=== PATIENT | female | born 1950 | race Caucasian/White ===

== ENCOUNTER 2017-01-16 13:07 | Day surgery (SDC) | payer MEDICARE, BC, OTHER ==
[~2017-01-16] VITALS: Ht 163.8 cm; Wt 74.1 kg
[~2017-01-16 13:07] MED LIST: ABILIFY10 MG PO; HYDROCHLOROTHIAZIDE PO; IPRAT-ALBUT 0.5-3 ML UPD; KLONOPIN0.5 MG PO; LASIX20 MG PO; LEVAQUIN750 MG PO; LOPRESSOR50 MG PO; MELATONIN 10 M1 EACH PO; PLAVIX75 MG PO; PROAIR HFA8.5 GM INH; PROVENTIL HFA6.7 GM INH; PROZAC40 MG PO; PULMICORT0.5 MG/21 INH; SPIRIVA18 MCG INH; STERAPRED 5MG 125 MG PO; SYMBICORT 16010.2 GM INH; VALIUM5 MG PO; VYTORIN 10-20 M1 TAB PO; ZESTRIL10 MG PO
[2017-01-16 15:32] LABS: HEMATOCRIT 40.4 % (36.0-48.0); HEMOGLOBIN 13.1 g/dL (12-16); MCHC 32.4 g/dL (31.0-37.0); MCV 92.7 fL (80.0-100.0); MEAN PLATELET VOLUME 9.4 fL (7.4-10.4); RBC 4.36 10x6/uL (4.00-5.40); RDW 13.9 % (11.5-14.5); WBC 10.3 10x3/uL (4.8-10.8)
[2017-01-16] MEDS ORDERED: VALIUM 2 MG TAB2 MG PO (15:43)
[2017-01-16 15:47] VITALS: BP 138/74; Ht 163.8 cm; Wt 74.1 kg
--- NOTE | 2017-01-22 10:15 | OP ---
PATIENT NAME: GANGA BARKER MEDICAL RECORD: [id number] :46 LOCATION:[facility] ADMISSION DATE: SURGEON: PRO BEARDEN DO DATE OF OPERATION: 01/16/2017 PROCEDURE: Esophagogastroduodenoscopy. SCOPE: Olympus video gastroscope. MEDICATIONS: Propofol 120 mg IV per anesthesia. INDICATIONS FOR PROCEDURE: Generalized abdominal pain, heartburn, gas and bloating, melena, nausea, and occult blood in stools. FINDINGS: Informed consent was given. The patient was made comfortable with the above medications. After reaching an adequate level of sedation by slow IV push, the patient was placed on her left side. The endoscope was then advanced under direct visualization through the mouth to the second portion of the duodenum. The upper, middle and distal thirds of the esophagus appeared normal. At the GE junction, there was evidence of moderate reflux induced esophagitis/LA class A. There was an esophageal ulceration present at the GE junction. The scope was advanced into the stomach and retroflexed to view the cardia, where a small sliding hiatal hernia was present. The scope was advanced into the body of the stomach as well as the antrum and prepyloric region. There was some patchy erythema and granularity consistent with gastritis. This was present in the fundus, body and antrum. Random biopsies were taken of the antrum, incisura, body and fundus of the stomach. These were sent for histology and to rule out H. pylori. The scope was advanced into the duodenum where the bulb and second portion appeared normal. Scope was then withdrawn from the patient. The patient tolerated the procedure well and there were no complications. ESTIMATED BLOOD LOSS: Less than 5 cc. IMPRESSION: 1. Reflux esophagitis grade A. 2. Esophageal ulcerations. 3. Gastritis. 4. Sliding hiatal hernia. PLAN AND RECOMMENDATIONS: 1. Discharge home when recovery parameters are met. 2. Continue current diet. 3. Reflux precautions. 4. Trial of omeprazole 40 mg daily for 8 weeks. 5. The patient is scheduled to return for a colonoscopy. I will discuss her symptoms at that time and if she is not better, we will provide further workup regarding her symptoms. Of note, based on some of her symptoms, we did discuss performing a gastric emptying study and I will schedule this at this time. TRANSINT:[id number] Voice Confirmation ID: [id number] DOCUMENT ID: [id number] OPERATIVE REPORT [id number] GANGA BARKER,PRO Viramontes DO at 1015 CC: [id number] DICTATION DATE: 01/16/171820 TRANSIT COACH OPERATOR: 01/17/17 0025 [facility] 01/16/17 [facility] [address] [id number]
== END 2017-01-16 19:28 | disposition home or self-care (01) ==
LOC: D.OPS 13:07
PROVIDERS: Anesthesiology
DX: K21.0 Gastro-esophageal reflux disease with esophagitis (principal); K44.9 Diaphragmatic hernia without obstruction or gangrene; K22.10 Ulcer of esophagus without bleeding; K29.50 Unspecified chronic gastritis without bleeding; R12 Heartburn; R14.3 Flatulence; R19.5 Other fecal abnormalities

== ENCOUNTER 2017-02-18 08:27 | Day surgery (SDC) | payer MEDICARE, BC, OTHER ==
[~2017-02-18] VITALS: Ht 163.8 cm; Wt 74.1 kg
[~2017-02-18 08:27] MED LIST changes: +VALIUM 2 MG TAB2 MG PO
[2017-02-18 09:23] LABS: BASOPHILS 0.3 % (0-2); EOSINOPHILS 1.8 % (0-7); HEMATOCRIT 40.7 % (36.0-48.0); HEMOGLOBIN 13.4 g/dL (12-16); MCHC 32.9 g/dL (31.0-37.0); MCV 91.3 fL (80.0-100.0); MEAN PLATELET VOLUME 9.5 fL (7.4-10.4); MONOCYTES 5.7 % (2-11); NEUTROPHILS 79.2 % (40-80); PLATELET COUNT 214 10x3/uL (130-400); RBC 4.46 10x6/uL (4.00-5.40); RDW 13.9 % (11.5-14.5); WBC 7.3 10x3/uL (4.8-10.8)
[2017-02-18 09:50] LABS: CALC OSMOLALITY 271 mosm/kg (275-300); CALCIUM 9.5 mg/dL (8.5-10.1); CARBON DIOXIDE 24.6 mmol/L (21.0-32.0); CHLORIDE - SERUM 102 mmol/L (98-107); CREATININE - SERUM 0.8 mg/dL (0.6-1.3); GLUCOSE 95 mg/dL (74-106); SODIUM 137 mmol/L (136-145); UREA NITROGEN 8 mg/dL (7-18); eGFR NON AFRICAN AMERICAN 75 mL/min (90-120)
[2017-02-18] MEDS ORDERED: NORVASC10 MG PO (10:10)
[2017-02-18 10:12] VITALS: BP 137/60; Ht 163.8 cm; Wt 74.1 kg
--- NOTE | 2017-02-18 11:40 | NUR ---
1125-RECD TO ROOM, ALERT. IV PATENT. RESP WITH EASE. POST COLONOSCOPY.
--- NOTE | 2017-02-18 12:22 | NUR ---
PATIENT DISCHARGED HOME VIA WHEELCHAIR TO PRIVATE VEHICLE WITH DAUGHTER
--- NOTE | 2017-02-19 10:26 | OP ---
PATIENT NAME: GANGA BARKER MEDICAL RECORD: [id number] :46 LOCATION:[facility] ADMISSION DATE: SURGEON: PRO BEARDEN DO DATE OF OPERATION: 02/18/2017 PROCEDURE: Colonoscopy with snare polypectomy and hemostasis with cauterization. INDICATIONS FOR PROCEDURE: Hematochezia, generalized abdominal pain, occult blood in the stools, history of colon polyps. SCOPE: Olympus video pediatric colonoscope. MEDICATIONS: Propofol 370 mg IV per anesthesia. Withdrawal time was greater than 15 minutes. ESTIMATED BLOOD LOSS: Less than 5 cc. FINDINGS: Informed consent was given. The patient was made comfortable with the above medication. After reaching an adequate level of sedation by slow IV push, the patient was placed on her left side. The digital rectal examination was performed and revealed some external hemorrhoids and skin tags. The endoscope was then advanced under direct visualization through the anus to the terminal ileum. There was evidence of severe pandiverticulosis throughout her entire colon. There were areas in the ascending colon where there appeared to be a red tint to the remaining stool and fluid within the colon. There were some pulling o this material near diverticula. It was all washed out as well as possible and there was no evidence of current bleeding or any bleeding around in a diverticular site. There were 2 polyps located in the rectum. Both of these were flat and slightly sessile. Both measured approximately 5 mm in diameter. Both were removed with hot snare polypectomy in 1 piece and completely retrieved. One of these sites continued to bleed slightly after the polypectomy. For hemostasis, cauterization was performed using the tip of the snare to ablate the site. This was successful. Retroflexion in the rectum revealed some small nonbleeding internal hemorrhoids. The scope was withdrawn from the patient in its entirety. The patient tolerated the procedure well and there were no complications. IMPRESSION: 1. Pandiverticulosis, which I feel is likely the source of periodic oozing of blood as the patient does take NSAIDs fairly regularly. 2. Internal and external hemorrhoids, which were not bleeding and are small. 3. Two rectal polyps both removed with hot snare polypectomy. One of the sites was ablated for hemostasis post-polypectomy. PLAN AND RECOMMENDATIONS: 1. Discharge home when recovery parameters are met. 2. High fiber diet. 3. Consider supplementing a diet with 1-2 tablespoons of fiber daily to maintain regular, soft bowel movements. 4. Avoid NSAIDs for 1 week. 5. Consider minimizing NSAIDs use as this is likely the source of periodic bleeding along with the internal hemorrhoids. 6. Recall colonoscopy recommendations will be dependent on results of biopsy OPERATIVE REPORT [id number] GANGA BARKER specimens. 7. Follow up in the GI clinic as needed. TRANSINT:[id number] Voice Confirmation ID: [id number] DOCUMENT ID: [id number] PRO BEARDEN DO at 1026 CC: [id number] DICTATION DATE: 02/18/17 1119 RN STAFF: 02/18/17 1525 [facility] 02/18/17 [id number] [place] [address]
== END 2017-02-18 12:22 | disposition home or self-care (01) ==
LOC: D.OPS 08:27
PROVIDERS: Anesthesiology
DX: K57.30 Diverticulosis of large intestine without perforation or abscess without bleeding (principal); K64.8 Other hemorrhoids; K64.4 Residual hemorrhoidal skin tags; K62.1 Rectal polyp; Z79.1 Long term (current) use of non-steroidal anti-inflammatories (NSAID); Z86.010 Personal history of colon polyps

== ENCOUNTER 2017-08-26 07:09 | Day surgery (SDC) | payer MEDICARE, BC, OTHER ==
[~2017-08-26 07:09] MED LIST changes: +NORVASC10 MG PO
[2017-08-26 08:03] LABS: HEMATOCRIT 38.2 % (36.0-48.0); HEMOGLOBIN 12.3 g/dL (12-16); MCH 28.6 pg (26.0-34.0); MCHC 32.2 g/dL (31.0-37.0); MCV 88.8 fL (80.0-100.0); MEAN PLATELET VOLUME 9.8 fL (7.4-10.4); RBC 4.3 10x6/uL (4.00-5.40); RDW 13.8 % (11.5-14.5); WBC 6.7 10x3/uL (4.8-10.8)
[2017-08-26] MEDS ORDERED: BUPROPION HCL150 M1 PO (08:37)
[2017-08-26] MEDS ORDERED: OMEPRAZOLE40 MG PO (08:38)
[2017-08-26] MEDS ORDERED: DESERYL100 MG PO (08:39)
[2017-08-26] MEDS ORDERED: [UNRECOGNIZED DRUG - OTHER] PO (08:40)
[2017-08-26] MEDS ORDERED: POTASSIUM99 M1 PO (08:40)
[2017-08-26] MEDS ORDERED: ALENDRONATE SOD70 MG PO (08:41)
[2017-08-26] MEDS ORDERED: BROVANA15 MCG/2 M INH (08:44)
[2017-08-26] MEDS ORDERED: PULMICORT0.5 MG/21 (08:44)
[2017-08-26 08:46] VITALS: BP 164/73; BMI 27.6
--- NOTE | 2017-08-26 12:51 | NUR ---
1245- VSS. PT SITTING UP IN BED WITH HOB ELEVATED. TOLERATING LIQUIDS AT THIS TIME. JUICE OFFERED. FULL LIQUID TRAY OFFERED WELL. FAMILY AT BEDSIDE. O2 NC D/C'D, WILL MONITOR CLOSELY.
--- NOTE | 2017-09-09 11:15 | OP ---
PATIENT NAME: GANGA BARKER MEDICAL RECORD: [id number] :46 LOCATION:[facility] ADMISSION DATE: SURGEON: STONEY YOST MD DATE OF OPERATION: 08/26/2017 PREOPERATIVE DIAGNOSIS: Laryngeal mass. POSTOPERATIVE DIAGNOSIS: Laryngeal mass. PROCEDURE: Direct laryngoscopy and biopsy. SURGEON: Stoney Yost MD ANESTHESIA: General orotracheal. BLOOD LOSS: 1 cc. SPECIMENS: Multiple biopsies of the laryngeal surface of the epiglottis. FROZEN SECTION DIAGNOSIS: Squamous cell carcinoma. COMPLICATIONS: None. DISPOSITION: Recovery stable. PROCEDURE IN DETAIL: She was brought to the operating room, placed in supine position, sedated and intubated by anesthesia. The table was turned 90 degrees. A head drape was applied and she was positioned for laryngoscopy. A plastic tooth guard was used to protect the upper alveolus as she was edentulous. Kleinsasser J laryngoscope was inserted. The hypopharynx, lateral pharyngeal cote, pyriforms, vallecula, base of tongue and postcricoid area were all inspected. The posterior pharyngeal wall, everything was completely normal. From the intubation, there was some blood on the epiglottis. This was suctioned away. The arytenoids, cords, false cords were all normal. She had a plaque-like exophytic lesion along the laryngeal surface of the epiglottis, across the midline, was at least half the width of the epiglottis. It did not extend down to the petiole or to the margins of the epiglottis, but most of the central portion little more right than left-sided. The cords, subglottis, upper trachea, everything else looked normal. A 4-mm upbiting cup forceps was used to take multiple biopsies. A couple of those were sent for frozen, which returned most likely invasive squamous cell carcinoma. Basically because of her dysphagia symptoms, with upbiting cup forceps with about another 10 biopsies, basically completely removed, this did flatten out the surface of the laryngeal surface of the epiglottis, just smooth and removed the entire visible lesion there at least. Once that was done, an Afrin pledget was placed in the area waiting for frozen diagnosis. Then, the pledget was removed. The field was clean and dry. She was awakened. The plastic tooth guard was removed. She was extubated and transported to recovery in good condition. No complications. TRANSINT:[id number] Voice Confirmation ID: [id number] DOCUMENT ID: [id number] OPERATIVE REPORT [id number] GANGA BARKER ERIC MD at 1115 CC: [id number] DICTATION DATE: 08/26/17 1146 VEHICLE SERVICE ATTENDANT: 08/26/17 1320 [facility] 08/26/[address] [id number]
--- NOTE | 2017-09-09 11:15 | HP ---
PATIENT: GANGA BARKER MEDICAL RECORD: [id number] ACCOUNT: [id number] LOCATION:[facility] : 46 ADMISSION DATE: 08/26/17 HISTORY AND PHYSICAL EXAMINATION HISTORY OF PRESENT ILLNESS: Ganga is a 66-year-old. She has noticed something in her throat, this is giving her some trouble swallowing. On exam, she was noted to have a large lesion on laryngeal surface of epiglottis. She is being admitted for direct laryngoscopy and biopsy of that lesion. PAST MEDICAL HISTORY: Includes hypertension and reflux. PAST SURGICAL HISTORY: Includes cholecystectomy, knee surgery. CURRENT MEDICATIONS: Lisinopril, Prozac, Abilify, alendronate, omeprazole, fluoxetine, Urogesic, amlodipine, trazodone, clonazepam. ALLERGIES: No known drug allergies. PHYSICAL EXAMINATION: GENERAL: She is a thin female. She is a fair historian. FACE: Normal, symmetric, no lesions. EYES: Sclerae and conjunctivae are normal. EARS: On the right ear, she has a small TM perforation. She is status post tympanoplasty many years ago. NOSE: No mass, polyps, or drainage. ORAL CAVITY AND OROPHARYNX: Tongue protrudes in the midline. Pharynx and palate are normal. NECK: No masses, no adenopathy. Flexible laryngoscopy through the nose revealed bulky lesion on the laryngeal surface of the epiglottis, more right-sided, but crossing the midline. The neck has no masses, no adenopathy. CHEST: Clear. CARDIOVASCULAR: Regular rate and rhythm, no murmur. EXTREMITIES: Normal. IMPRESSION: Laryngeal mass. PLAN: Direct laryngoscopy and biopsy. TRANSINT:[id number] Voice Confirmation ID: [id number] DOCUMENT ID: [id number] ANDREY EAGLE MD at 1115 CC: [id number] DICTATION DATE: 08/22/17 1523 AIRCRAFT ENGINEER: 08/22/17 1633 [facility] 08/26/[address] [address]
== END 2017-08-26 13:40 | disposition home or self-care (01) ==
LOC: D.OPS 07:09 → D.PAN 08:15 → D.OPS 09:30
PROVIDERS: Anesthesiology
DX: C10.1 Malignant neoplasm of anterior surface of epiglottis (principal); Z01.812 Encounter for preprocedural laboratory examination; I10 Essential (primary) hypertension; K21.9 Gastro-esophageal reflux disease without esophagitis; Z79.899 Other long term (current) drug therapy

== ENCOUNTER → 2018-09-17 09:08 | Outpatient (CLI) | payer MEDICARE, BC, OTHER ==
[~2018-09-17 09:08] MED LIST changes: +ALENDRONATE SOD70 MG PO; +BROVANA15 MCG/2 M INH; +BUPROPION HCL150 M1 PO; +DESERYL100 MG PO; +OMEPRAZOLE40 MG PO; +POTASSIUM99 M1 PO; +PULMICORT0.5 MG/21; +[UNRECOGNIZED DRUG - OTHER] PO
== END | disposition home or self-care (01) ==
LOC: D.CT 09:08
DX: R93.89 Abnormal findings on diagnostic imaging of other specified body structures (principal)

== ENCOUNTER → 2018-12-10 17:17 | Outpatient (CLI) | payer MEDICARE, BC, OTHER | END | disposition home or self-care (01) | LOC: D.MAMMO 16:15 | DX: Z12.31 Encounter for screening mammogram for malignant neoplasm of breast (principal) ==

== ENCOUNTER → 2019-04-28 11:11 | Outpatient (CLI) | payer MEDICARE, BC, OTHER | END | disposition home or self-care (01) | LOC: D.CT 11:11 | PROVIDERS: ATTEND Internal Medicine Pulmonary Disease | DX: R93.89 Abnormal findings on diagnostic imaging of other specified body structures (principal) ==

== ENCOUNTER → 2019-07-06 12:23 | Outpatient (CLI) | payer MEDICARE, BC, OTHER | END | disposition home or self-care (01) | LOC: D.RAD 12:23 | PROVIDERS: ATTEND Otolaryngology | DX: R13.12 Dysphagia, oropharyngeal phase (principal) ==

== ENCOUNTER → 2020-05-06 11:05 | Outpatient (CLI) | payer MEDICARE, BC, OTHER | END | disposition home or self-care (01) | LOC: D.LAB 11:05 | PROVIDERS: ATTEND Internal Medicine Pulmonary Disease | DX: Z11.59 Encounter for screening for other viral diseases (principal) ==

== ENCOUNTER → 2020-05-09 09:07 | Outpatient (CLI) | payer MEDICARE, BC, OTHER | END | disposition home or self-care (01) | LOC: D.RT 05-04 09:30 | PROVIDERS: ATTEND Internal Medicine Pulmonary Disease | DX: R91.8 Other nonspecific abnormal finding of lung field (principal); J44.9 Chronic obstructive pulmonary disease, unspecified; Z11.59 Encounter for screening for other viral diseases ==